=== PATIENT | male | born 2005 | race African-American/Black ===

== ENCOUNTER 2024-01-23 18:17 | Emergency (ER) | payer OTHER ==
[~2024-01-23] VITALS: Ht 172.7 cm; Wt 101.2 kg
[2024-01-23 19:19] VITALS: BP 138/76; PULSE 78; TEMP 98.9
[2024-01-23] MEDS ORDERED: BENZ200C64 PO (19:45)
[2024-01-23] MEDS ORDERED: CEPH500C PO (19:45)
[2024-01-23] MEDS ORDERED: ALBUAER3 IN (19:45)
[2024-01-23] MEDS ORDERED: PRED20TA2 PO (19:45)
[2024-01-23] MEDS: ALBUTEROL SULF 2.5 MG/0.5ML(0.5%) NEB SOLN NEB ONE (19:50)
[2024-01-23] MEDS: IPRATROPIUM BROM 0.5 MG/2.5ML INH SOL NEB ONE (19:50)
[2024-01-23 19:51] VITALS: RESP 17; O2SAT 100
[2024-01-23] MEDS: DexAMETHasone SOD PHOS 10MG/1ML VIAL INJ IM ONE (20:31)
== END 2024-01-23 21:20 | disposition home or self-care (01) ==
LOC: ER 18:17
DX: J45.909 Unspecified asthma, uncomplicated (principal); R07.81 Pleurodynia
CPT/HCPCS: 93005; 94640; 96372; 99283; J1100; J7644

== ENCOUNTER 2024-05-26 17:37 | Inpatient (IN) | payer OTHER ==
[~2024-05-26] VITALS: Ht 175.3 cm; Wt 106.8 kg
[~2024-05-26 17:37] MED LIST: ALBUAER3 IN; BENZ200C64 PO; CEPH500C PO; PRED20TA2 PO
[2024-05-26] MEDS: ALBUTEROL SULF 2.5 MG/0.5ML(0.5%) NEB SOLN ONE (19:48)
[2024-05-26 20:08] LABS: Urine Bacteria FEW /hpf (None Seen); Urine Blood Negative /uL (Negative); Urine Clarity Turbid (Clear); Urine Color Yellow (Yellow); Urine Hyaline Cast MANY /lpf (0 - 2); Urine Mucus FEW (None Seen); Urine Protein, UAD 1+ (Negative); Urine Specific Gravity 1.028 (1.001-1.035); Urine Urobilinogen Normal (Negative); Urine WBC 12 /hpf (0 - 3); Urine pH 5.5 (5.0-9.0)
[2024-05-26] MEDS: ALBUTEROL SULF 2.5 MG/0.5ML(0.5%) NEB SOLN NEB ONE (20:11)
[2024-05-26 20:13] LABS: Basophils # (auto) 0 10 ^3/uL (0-0.2); Basophils % (auto) 0.5 % (0.0-2.0); Eosinophils # (auto) 0 10 ^3/uL (0-0.8); Eosinophils % (auto) 0.5 % (0.0-7.0); Hematocrit 53.2 % (41.0-53.0); Lymphocytes # (auto) 2.4 10 ^3/uL (0.4-5.4); Lymphocytes % (auto) 27.2 % (10.0-50.0); Mean Corpuscular Hemoglobin 30.2 pg (28.0-32.0); Mean Corpuscular Hgb Conc. 33.8 g/dL (32.0-36.0); Mean Corpuscular Volume 89.3 fL (80.0-100.0); Monocytes # (auto) 0.6 10 ^3/uL (0-1.3); Monocytes % (auto) 7.1 % (0.0-12.0); Neutrophils # (auto) 5.7 10 ^3/uL (1.6-8.6); Neutrophils % (auto) 64.7 % (37.0-80.0); Platelet Count (auto) 269 10^3/uL (140-450); Red Blood Cells 5.96 10^6/uL (4.5-5.90); Red Cell Distribution Width 13.1 % (11.8-14.3); White Blood Cell 8.9 10^3/uL (4.4-10.8)
[2024-05-26 20:32] LABS: Alanine Aminotransferase 23 U/L (7-40); Albumin 4.7 g/dL (3.2-4.8); Alkaline Phosphatase 77 U/L (46-116); Anion Gap 13 (5-15); Aspartate Aminotransferase 17 U/L (13-40); BUN/Creatinine Ratio 6.5 (10.0-20.0); Bilirubin, Total 0.6 mg/dL (0.2-1.0); Blood Urea Nitrogen 8 mg/dL (9-23); Calcium 10.3 mg/dL (8.7-10.4); Carbon Dioxide 21 mmol/L (20-30); Chloride 104 mmol/L (98-107); Glucose 85 mg/dL (74-106); Potassium 3.8 mmol/L (3.5-5.1); Sodium 138 mmol/L (136-145); Total Protein 7.7 g/dL (5.7-8.2)
[2024-05-26] MEDS: ASPirin 325 MG TAB PO ONE (22:12)
[2024-05-26] MEDS ORDERED: NITROGLYCERIN 0.4 MG SL TAB SL PRN (22:30)
[2024-05-26] MEDS ORDERED: ONDANSETRON HCL 4 MG/2 ML VIAL IV PRN (22:30)
[2024-05-26] MEDS ORDERED: MORPHINE SULFATE INJ 2 MG/ml SYRG IV PRN (22:30)
[2024-05-26 23:51] LABS: LDL Cholesterol 70 mg/dL (< 100); Triglycerides 64 mg/dL (< 150)
[2024-05-26 23:53] LABS: Cholesterol 139 mg/dL (< 200); HDL Cholesterol 52 mg/dL (40-59)
[2024-05-26 23:54] LABS: % Iron Saturation 25.4 % (20-55)
[2024-05-27] VITALS (8 sets, daily range): BP systolic 108–116; BP diastolic 50–63; PULSE 60–87; RESP 18–22; TEMP 97.7–98.7; O2SAT 95–98
[2024-05-27] MEDS ORDERED: TRAM50TA2 PO (03:50)
[2024-05-27 09:25] LABS: Basophils # (auto) 0 10 ^3/uL (0-0.2); Basophils % (auto) 0.5 % (0.0-2.0); Eosinophils # (auto) 0.2 10 ^3/uL (0-0.8); Eosinophils % (auto) 2.3 % (0.0-7.0); Hematocrit 47.4 % (41.0-53.0); Hemoglobin 16.5 g/dL (13.5-17.5); Lymphocytes # (auto) 2.8 10 ^3/uL (0.4-5.4); Lymphocytes % (auto) 35.5 % (10.0-50.0); Mean Corpuscular Hemoglobin 30.5 pg (28.0-32.0); Mean Corpuscular Hgb Conc. 34.9 g/dL (32.0-36.0); Mean Corpuscular Volume 87.5 fL (80.0-100.0); Monocytes # (auto) 0.7 10 ^3/uL (0-1.3); Neutrophils # (auto) 4.1 10 ^3/uL (1.6-8.6); Neutrophils % (auto) 52.7 % (37.0-80.0); Nucleated Red Blood Cells % 0.1 %; Platelet Count (auto) 255 10^3/uL (140-450); Red Blood Cells 5.41 10^6/uL (4.5-5.90); Red Cell Distribution Width 13.3 % (11.8-14.3); White Blood Cell 7.8 10^3/uL (4.4-10.8)
[2024-05-27 09:41] LABS: Anion Gap 7 (5-15); Calcium 9.7 mg/dL (8.7-10.4); Carbon Dioxide 28 mmol/L (20-30); Chloride 104 mmol/L (98-107); Potassium 3.8 mmol/L (3.5-5.1); Sodium 139 mmol/L (136-145)
[2024-05-27 09:47] LABS: Glucose 99 mg/dL (74-106)
[2024-05-27 09:56] LABS: Blood Urea Nitrogen 14 mg/dL (9-23)
[2024-05-27] MEDS: ASPirin 81 mg TAB PO SCH (11:18)
[2024-05-27] MEDS: SODIUM CHLORIDE 0.9% 250 ML IV ONE (13:00)
[2024-05-27 13:02] LABS: Amphetamine Screen, Urine Neg (NEGATIVE)
[2024-05-27 13:03] LABS: Barbiturate Scree,Urine Neg (NEGATIVE); Benzodiazephine Screen, Urine Neg (NEGATIVE); Cannabinoid Screen, Urine Neg (NEGATIVE); Cocaine Screen, Urine Neg (NEGATIVE); Opiate Scree,Urine Neg (NEGATIVE); Phencyclidine Screen, Urine Neg (NEGATIVE)
[2024-05-27] MEDS: SODIUM CHLORIDE 0.9% 1,000 ML IV SCH (13:20)
[2024-05-27 14:45] LABS: Magnesium 2.1 mg/dL (1.6-2.6)
[2024-05-27 14:47] LABS: Phosphorus 2.8 mg/dL (2.4-5.1)
[2024-05-27 16:11] LABS: Uric Acid 10.3 mg/dL (3.7-9.2)
[2024-05-27 16:18] LABS: Protein, Urine 29.2 mg/dL (0.0-11.9)
[2024-05-27 16:28] LABS: Creatinine, Urine 559.36 mg/dL (30.0-125.0); Urine Protein/Creatinine Ratio 0.05
[2024-05-27] MEDS: ERGOCALCIFEROL 50,000 UNIT(1.25MG) CAP PO SCH (16:48)
[2024-05-27] MEDS: ATORVASTATIN 20 MG TAB PO SCH (22:09)
[2024-05-28 01:00] VITALS: BP 115/65; PULSE 70; RESP 17; TEMP 98.8; O2SAT 99
[2024-05-28 05:00] VITALS: BP 101/48; PULSE 66; RESP 18; TEMP 98.8; O2SAT 99
[2024-05-28 08:00] VITALS: PULSE 59
[2024-05-28 09:00] VITALS: BP 117/67; PULSE 61; RESP 20; TEMP 98.5; O2SAT 98
[2024-05-28 10:06] LABS: Alanine Aminotransferase 20 U/L (7-40); Albumin 4.1 g/dL (3.2-4.8); Alkaline Phosphatase 68 U/L (46-116); Anion Gap 6 (5-15); Aspartate Aminotransferase 14 U/L (13-40); BUN/Creatinine Ratio 9.3 (10.0-20.0); Bilirubin, Total 0.6 mg/dL (0.2-1.0); Blood Urea Nitrogen 10 mg/dL (9-23); Calcium 9.7 mg/dL (8.7-10.4); Carbon Dioxide 27 mmol/L (20-30); Chloride 106 mmol/L (98-107); Glucose 121 mg/dL (74-106); Potassium 3.7 mmol/L (3.5-5.1); Sodium 139 mmol/L (136-145); Total Protein 6.6 g/dL (5.7-8.2)
[2024-05-28 13:00] VITALS: BP 116/69; PULSE 72; RESP 20; TEMP 98.7; O2SAT 98
[2024-05-28] MEDS ORDERED: ERGO1CAP23 PO (14:19)
[2024-05-28] MEDS: COLCHICINE 0.6 MG CAP PO SCH (15:07)
== END 2024-05-28 16:00 | disposition home or self-care (01) | DRG 640 ==
LOC: ER 17:37 → TELE 22:31 → TELE-EAST 22:31
PROVIDERS: ADMIT Internal Medicine Pulmonary Disease; ATTEND Internal Medicine Pulmonary Disease
DX: E86.0 Dehydration (principal); I21.A1 Myocardial infarction type 2; N17.9 Acute kidney failure, unspecified; E55.9 Vitamin D deficiency, unspecified; E79.0 Hyperuricemia without signs of inflammatory arthritis and tophaceous disease; E66.9 Obesity, unspecified; Z82.49 Family history of ischemic heart disease and other diseases of the circulatory system; Z68.34 Body mass index [BMI] 34.0-34.9, adult
CPT/HCPCS: 36415; 71045; 76775; 80048; 80053; 80061; 80307; 80320; 81001; 82306; 82550; 82570; 83540; 83550; 83735; 83880; 83970; 84100; 84156; 84300; 84484; 84550; 85025; 85379; 93005; 93306; 94640; G0378